=== PATIENT | female | born 1980 | race Caucasian/White ===

== ENCOUNTER 2017-01-21 02:01 | Inpatient (IN) | payer OTHER ==
--- NOTE | 2017-01-20 14:18 | History & Physical Pre-Op ---
General Information and HPI History of Present Illness: The patient is a 36-year-old 2 para 2 admitted today for total abdominal hysterectomy secondary to menorrhagia, fibroid uterus, endometrial polyp. Desires definitive treatment. She also has a complex ovarian cyst on the left ovary and is requesting ovarian cystectomy. She has a previous right nephrectomy secondary to torsion. She is currently using a Mirena which is in place. Allergies/Medications Allergies: Coded Allergies: MDX - PCN (penicillin) (PCN (PENICILLIN)) (Severe, ANAPHYLAXIS 05/17/14) MDX - Diphenhydramine (From BENADRYL) (Intermediate, HIVES 05/17/14) Home Med list Ibuprofen 800 MG TAB 800 MG PO Q6-PRN PRN PAIN OXYCODONE HCL/ACETAMINOPHEN (Percocet 5-325 MG Tablet) 325 MG/5 MG TAB 2 TAB PO Q4P PRN PAIN Past History Medical History History of MRSA: No History of VRE: No History of CDIFF: No Surgical History Pertinent Surgical History: laparotomy with right oophorectomy Review of Systems Review of Systems Constitutional: Reports: no symptoms. EENTM: Reports: no symptoms (physicalc(). Cardiovascular: Reports: no symptoms ("). Respiratory: Reports: no symptoms. GI: Reports: no symptoms. Genitourinary: Reports: no symptoms. Musculoskeletal: Reports: no symptoms. Skin: Reports: no symptoms. Neurological/Psychological: Reports: no symptoms. Hematologic/Endocrine: Reports: no symptoms. Immunologic/Allergic: Reports: no symptoms. All Other Systems: Reviewed and Negative Exam & Diagnostic Data Last 24 Hrs of Vital Signs/I&O HEENT: Normocephalic atraumatic Neck: Soft no thyromegaly Chest: Clear to auscultation Cardiovascular: Normal S1, S2 Abdomen: Soft, nontender nondistended Pelvic: Deferred: Extremities: No clubbing cyanosis or edema Neurologic: Nonfocal Assessment/Plan Assessment/Plan: Fibroid uterus, left ovarian cyst Plan: Total abdominal hysterectomy and left ovarian cystectomy, bilateral salpingectomy As Ranked By This Provider Problem List: 1. Fibroid uterus
[~2017-01-21] VITALS: Ht 170.2 cm; Wt 79.4 kg
[~2017-01-21 02:01] MED LIST: IBUPROFEN800 MG PO; PERCOCET 325 MG1 TA2 PO
[2017-01-21 18:07] LABS: ABSOLUTE BASOPHIL COUNT 0 /CUMM (0.0-0.2); ABSOLUTE EOSINOPHIL COUNT 0 /CUMM (0.0-0.7); ABSOLUTE GRANULOCYTE CT 8.2 /CUMM (1.4-6.5); ABSOLUTE LYMPH COUNT 0.5 /CUMM (1.2-3.4); ABSOLUTE MONOCYTE COUNT 0.2 /CUMM (0.10-0.60); BASOPHIL % 0 % (0.0-2.0); EOSINOPHIL % 0 % (0-5); HEMATOCRIT 35.3 % (37-47); MEAN CORPUSCULAR HGB 30.2 PG (27.0-31.0); MEAN CORPUSCULAR HGB CONC 33.8 G/DL (33.0-37.0); MEAN CORPUSCULAR VOLUME 89.4 FL (81.0-99.0); MEAN PLATELET VOLUME 8.1 FL (7.4-10.4); PLATELET COUNT 204 /CUMM (130-400); RBC DISTRIBUTION WIDTH 13.4 % (11.5-14.5); RED BLOOD CELL CT 3.94 /CUMM (4.20-5.40); WHITE BLOOD CELL COUNT 8.9 /CUMM (4.8-10.8)
[2017-01-21 18:31] LABS: GRANULOCYTE % 92.3 % (42.2-75.2)
[2017-01-22 08:16] LABS: ABSOLUTE BASOPHIL COUNT 0 /CUMM (0.0-0.2); ABSOLUTE EOSINOPHIL COUNT 0 /CUMM (0.0-0.7); ABSOLUTE GRANULOCYTE CT 9.1 /CUMM (1.4-6.5); ABSOLUTE LYMPH COUNT 1.4 /CUMM (1.2-3.4); BASOPHIL % 0.2 % (0.0-2.0); EOSINOPHIL % 0 % (0-5); GRANULOCYTE % 79.2 % (42.2-75.2); HEMATOCRIT 33.2 % (37-47); MEAN CORPUSCULAR HGB 30.3 PG (27.0-31.0); MEAN CORPUSCULAR HGB CONC 33.1 G/DL (33.0-37.0); MEAN CORPUSCULAR VOLUME 91.4 FL (81.0-99.0); MEAN PLATELET VOLUME 8.8 FL (7.4-10.4); PLATELET COUNT 177 /CUMM (130-400); RBC DISTRIBUTION WIDTH 13.2 % (11.5-14.5); RED BLOOD CELL CT 3.63 /CUMM (4.20-5.40); WHITE BLOOD CELL COUNT 11.5 /CUMM (4.8-10.8)
[2017-01-23] MEDS ORDERED: PERCOCET 5-3251 EACH PO (09:21)
[2017-01-23] MEDS ORDERED: IBUPROFEN800 M1 PO (09:21)
[2017-01-23] MEDS ORDERED: DOCUSATE SODIU100 M3 PO (09:21)
--- NOTE | 2017-01-26 12:44 | Operative Report ---
Operative/Inv Procedure Report Surgery Date: 01/21/17 Name of Procedure: cystosocpy: bilateral stent insertion Pre-Operative Diagnosis: fibroids Post-Operative Diagnosis: same Estimated Blood Loss: scant Surgeon/Electronic Specialist: MD RAINE ARAGON-UROLOGY Anesthesia: general endotracheal tube Drains: 18FR NANCE Specimens: UCX Complications: NONE Operative/Procedure Note Note: The patient was taken to the operating room and placed on the OR table in supine position. Timeout was performed, with the patient awake, to confirm identify, planned procedures, anesthesia, antibiotics and other pertinent elena-operative information. After adequate anesthesia, and IV antibiotics, the patient was placed in lithotomy Yellow-fin stirrups. She was then draped and prepped in the usual surgical fashion, including a vaginal prep. A 22 [place] cystoscope sheath with a 30 angle lens was inserted into the bladder without significant difficulty. The bladder was thoroughly and systematically examined, and was noted to be free of tumor, free of stone, free of endometriosis. Both ureteral orifices were in their orthotopic positions with clear reflux bilaterally. Under direct visualization the left orifice was intubated with a 5 [place] whistle-tip catheter, which was advanced easily into the left kidney pelvis. The right ureteral orifice was intubated with a second 5 [place] ureteral whistle tip catheter, and advanced into the right renal pelvis without difficulty. For identification purposes the blue marked stent went into the left kidney and the right ureteral stent was marked red. Urine culture was obtained and sent to pathology. The cystoscope was then removed leaving both stents in proper place. An 18 [place] Nance catheter was inserted draining clear fluid and 10 mL of sterile water was then placed in the balloon. The ends ureteral stents, which protruded externally, were taped to the Nance catheter in order to secure their position. The individual ureteral stents were then connected to their individual drainage devices. The patient tolerated the procedure well. All sponge needle and instrument count were correct at the end of this procedure. The patient was then placed in supine position with Venodyne's in place. At this point, Dr. Javier was able to proceed with his patient's surgery. Discharge Disposition: PROCEED WITH DR. JAVIER CC: MARGO DAVIS,RAINE
--- NOTE | 2017-01-29 18:48 | Operative Report ---
See Addendum Operative/Inv Procedure Report Surgery Date: 01/21/17 Name of Procedure: Total abdominal hysterectomy bilateral salpingectomy left ovarian cystectomy Pre-Operative Diagnosis: Fibroid uterus, menorrhagia Post-Operative Diagnosis: Same Estimated Blood Loss: 50ml to 100ml Surgeon/Tester Food Products: BRETT CAN MD,XAVIER Burdick M.D. Anesthesia: general endotracheal tube Operative/Procedure Note Note: The patient was brought to the operating room placed on the OR table in the dorsal supine position. She was given adequate anesthesia and successfully intubated. A Toth catheter was placed and drained clear yellow urine. She the abdomen was prepped and draped in usual sterile fashion. A Pfannenstiel skin incision was made with the scalpel and taken down to the layer of the fascia. The fascia was nicked in the midline and extended bilaterally. The underlying rectus muscles are sharply dissected away and entered. The rectus muscles were and the perineal cavity was entered. An O'Caleb-O'Borrego retractor was placed and the intestines were packed away using moistened laparotomy pads. A single-tooth tenaculum was attached to the fundus of the uterus and this was elevated throughout the case. 2 Shilpi clamps were placed ON THE ADNEXA. THE RIGHT ROUND LIGAMENT WAS SUTURE LIGATED IN A [id number] FASHION WITH 0 POLYSORB IN TAGGED. THE SAME PROCEDURES. ON THE LEFT. A BLADDER FLAP WAS CREATED SHARPLY WITH THE METZENBAUM SCISSORS AND TAKEN DOWN OVER THE CERVIX. THE RIGHT UTERO-OVARIAN LIGAMENT WAS CLAMPED TRANSECTED AND SUTURE LIGATED WITH 0 POLYSORB. SAME PROCEDURE PROCEDURE WAS REPEATED ON THE LEFT WITH GOOD HEMOSTASIS. THE RIGHT UTERINE ARTERY WAS CROSS CLAMPED TRANSECTED AND SUTURE LIGATED WITH 0 POLYSORB. SAME PROCEDURES. ON THE LEFT WITH GOOD HEMOSTASIS. SEQUENTIALLY THE RIGHT AND LEFT CARDINAL LIGAMENTS WERE CLAMPED TRANSECTED AND SUTURE LIGATED TO THE LEVEL OF THE VAGINA. THE CERVIX WAS THEN EXCISED AND THE VAGINAL CUFF WAS CLOSED USING 0 POLYSORB IN A RUNNING LOCKING FASHION. ATTENTION WAS THEN PAID TO THE LEFT ADNEXA. HER AND CYST WAS NOTED AND GRASPED. IT WAS OPENED AND THE FLUID WAS DRAINED. THE CYST WAS EXCISED USING ELECTROCAUTERY. THE OVARY WAS OVERSEWN USING 2-0 POLYSORB IN A RUNNING LOCKING FASHION. THE PELVIS AND ALL SURGICAL SITES WERE COPIOUSLY IRRIGATED AND NOTED TO BE HEMOSTATIC. MONY SURGICAL POWDER WAS PLACED IN THE SURGICAL SITES. THE LAPAROTOMY PADS AND THE FACTOR WAS REMOVED FROM THE ABDOMEN. THE RECTUS MUSCLES WERE THEN REAPPROXIMATED IN A MATTRESS SUTURE OF 0 POLYSORB. FASCIA WAS CLOSED WITH 0 POLYSORB IN A RUNNING NONLOCKING FASHION. SUBCUTANEOUS TISSUES WERE IRRIGATED AND COAGULATED WERE NEEDED. THE SKIN WAS CLOSED USING JAVIER. A DRY STERILE DRESSING WAS APPLIED TO THE WOUND. THE PATIENT WAS SENT TO RECOVERY IN GOOD CONDITION. ALL NEEDLE, SPONGE, AND MANAGEMENT COUNTS WERE CORRECT AT THE END OF THE PROCEDURE 2.
--- NOTE | 2017-02-03 12:22 | Surgical Discharge Summary ---
Visit Information Visit Dates Admission Date: 01/21/17 Discharge Date: 01/23/17 History of Present Illness Chief Complaint: Fibroid uterus Medical History History of MRSA: No History of VRE: No History of CDIFF: No Surgical History Pertinent Surgical History: laparotomy with right oophorectomy Psychosocial History Who Do You Live With? Spouse What is Your Primary Language? Malian Review of Systems: Negative Hospital Course Course Attending Physician: XAVIER GUILLEN MD Primary Care Physician: SUPRIYA HENAO MD Hospital Course: The patient was admitted and underwent total abdominal hysterectomy bilateral salpingectomy and left ovarian cystectomy without complication. She was sent to recovery in good condition. On postoperative day #1 she was afebrile and her vital signs are stable. Her Toth was discontinued her diet was advanced her activity was increased. Her H&H returned stable. On postoperative day #2 the patient was doing well and was discharged home. Allergies: Coded Allergies: Penicillins (Severe, ANAPHYLAXIS 01/21/17) diphenhydramine (From BENADRYL) (Intermediate, HIVES 01/21/17) Disposition Summary Disposition Principal Diagnosis: Fibroid uterus Additional Diagnosis: Left ovarian cyst Discharge Disposition: home or self care Discharge Instructions General Discharge Information Code Status: Full Code Patient's Diet: Regular Patient's Activity: Pelvic rest Follow-Up Instructions/Appts: 1 week incision check Medications at Discharge Discharge Medications: Stop taking the following medications: Ibuprofen (Ibuprofen) 800 MG TAB ORAL EVERY 6 HOURS NEEDED as needed for PAIN Qty = 30 OXYCODONE HCL/ACETAMINOPHEN (Percocet 5-325 MG Tablet) 325 MG/5 MG TAB ORAL EVERY 4 HOURS NEEDED as needed for PAIN Qty = 60 Start taking the following new medications: Ibuprofen (Ibuprofen) 800 MG TABLET 800 Milligram ORAL EVERY SIX HOURS NEEDED as needed for PAIN Qty = 36 No Refills Comments: Last Taken:01/23/17 Time:0900 Oxycodone HCl/Acetaminophen (Percocet 5-325 MG Tablet) 5 MG-325 MG TABLET 1 Tablet ORAL EVERY 4 HOURS NEEDED as needed for PAIN Qty = 21 No Refills Docusate Sodium (Docusate Sodium) 100 MG CAPSULE 100 Milligram ORAL TWICE DAILY Qty = 60 No Refills
== END 2017-01-23 10:30 | DRG 743 ==
LOC: SDA 02:01 → ENRESERV 10:13 → GNO 11:45
PROVIDERS: ADMIT Obstetrics & Gynecology
PROC: 0UT90ZZ Resection of Uterus, Open Approach (ICD-10-PCS; principal; 2017-01-21)
PROC: 0UTC0ZZ Resection of Cervix, Open Approach (ICD-10-PCS; principal; 2017-01-21)
PROC: 0UB10ZZ Excision of Left Ovary, Open Approach (ICD-10-PCS; principal; 2017-01-21)
PROC: 0T788DZ Dilation of Bilateral Ureters with Intraluminal Device, Via Natural or Artificial Opening Endoscopic (ICD-10-PCS; 2017-01-21)
PROC: 0UT70ZZ Resection of Bilateral Fallopian Tubes, Open Approach (ICD-10-PCS; 2017-01-21)
DX: D25.9 Leiomyoma of uterus, unspecified (principal); N92.0 Excessive and frequent menstruation with regular cycle; N83.12 Corpus luteum cyst of left ovary
CPT/HCPCS: GNOS; 81025; 87086; 88307; C9399; J0131; J1170; J1580; J2405